=== PATIENT | female | born 1970 | race Caucasian/White ===

== ENCOUNTER → 2017-09-18 20:00 | Outpatient (CLI) | payer MEDICAID, SELFPAY ==
--- NOTE | 2017-09-18 20:00 | DT_ITS ---
This patient was seen during an EMR downtime September 11, 2017 - September 18, 2017. This patient may have a combination of paper and electronic documentation or all paper documentation. All documentation is viewable within the e-chart portion of [facility] for each patient visit.
== END ==
PROVIDERS: Visit Provider Family Medicine
DX: R06.83 Snoring (principal)
CPT/HCPCS: 95810

== ENCOUNTER → 2017-09-27 21:29 | Outpatient (CLI) | payer MEDICAID, SELFPAY | PROVIDERS: Visit Provider Family Medicine | DX: G47.33 Obstructive sleep apnea (adult) (pediatric) (principal) | CPT/HCPCS: 95811 ==

== ENCOUNTER 2019-03-27 02:13 | Emergency (ER) | payer MEDICAID, SELFPAY ==
[2019-03-27 02:13] VITALS: BP 173/89; PULSE 96; RESP 18; TEMP 37; O2SAT 97; BMI 37.4
--- NOTE | 2019-03-27 02:19 | ED.RN ---
CALLED FOR EKG PER RN REQUEST, PULLED OLD EKGS FOR
--- NOTE | 2019-03-27 02:22 | RAD_ITS ---
STUDY: X-RAY CHEST REASON FOR EXAM: Female, 48 years old. Sudden onset of pain in the chest which radiates into the right shoulder TECHNIQUE: 1 view COMPARISON: May 11, 2016 FINDINGS: The lungs are clear and expanded. There is no demonstrated pleural abnormality. Normal size heart. Normal mediastinum and hector. Normal visualized pulmonary arteries. Normal visualized aortic arch and descending thoracic aorta. Normal visualized thoracic spine. Normal visualized ribs, clavicles, and shoulders. There is no demonstrated abnormality of the visualized soft tissue structures of the upper abdomen. RAD/Chest 1 View (Portable) IMPRESSION: Normal x-ray examination of the chest. No acute findings in the lungs Electronically Signed: Abraham Hopson MD at 2:52 EST Tel , Service support ,
--- NOTE | 2019-03-27 02:22 | EKG12_ITS ---
Test Reason : CP Blood Pressure : / mmHG Vent. Rate : 092 BPM Atrial Rate : 092 BPM P-R Int : 142 ms QRS Dur : 080 ms QT Int : 370 ms P-R-T Axes : 049 048 051 degrees QTc Int : 457 ms Normal sinus rhythm Normal ECG Confirmed by AMANDA SHERMAN, BEBETO ([id number]), book editor SERGIO BOND ([id number]) on 04/01/2019 11:48:15 AM Referred By: ESAU Confirmed By:CARLOS PATEL MD
[2019-03-27 02:28] VITALS: BP 173/99; PULSE 94; RESP 23; TEMP 37; O2SAT 93
--- NOTE | 2019-03-27 02:45 | ED.VIS.GEN ---
History of Present Illness Chief Complaint: Chest Pain Informant: Patient Onset: Today Current Severity: - - Resolved Maximum Severity: Moderate Narrative: Patient presents via EMS for chest pain. She reports being diagnosed recently with a viral upper respiratory infection. She was given prednisone and an inhaler. Patient states she was sitting at work tonight when she got sudden pain from the anterior mid chest through to her back. Episode lasted approximately 10 minutes but resolved before EMS arrived. Patient states she continues to have upper respiratory infection symptoms with cough and congestion. She believes her fever has been improving. - Past Medical History (1) Hyperlipidemia Status: Chronic (2) Anxiety Status: Chronic (3) Depression Status: Chronic (4) Hypertension Status: Chronic (5) Myocardial infarction Status: Chronic (6) Asthma Status: Chronic (7) Diabetes Status: Chronic Past Medical History - Allergies and Home Meds Allergies/Adverse Reactions: Allergies gluten Adverse Reaction (Verified 11/02/16 09:59) ABD DISTENTION lactose Adverse Reaction (Verified 11/02/16 09:59) Upset Stomach meperidine [From Demerol] Adverse Reaction (Verified 11/02/16 09:59) Vomiting Primary Care Physician: Fina Sneed DO [Primary Care Provider] - Prior records reviewed: Yes Surgical History: appendectomy, cholecystectomy Smoking Status: Never smoker Review of Systems General: Reports: Fever, Subjective Eyes: Denies: Visual changes - bilaterally ENT: Reports: Sore throat, - - Congestion. Denies: Bilateral ear pain Cardiovascular: Reports: Chest pain Respiratory: Reports: Dyspnea, Cough, Sputum Gastrointestinal: Denies: Vomiting, Diarrhea Genitourinary: Reports: Dysuria Musculoskeletal: Reports: Myalgias Skin: Denies: Rash Neurological: Denies: Headache Hematologic: Denies: Easy bruising, Easy bleeding Allergy: Denies: Uticaria Physical Exam Vital Signs/Narrative: Vital Signs Temp Pulse Resp BP Pulse Ox 03/27/19 02:28 98.6 F 94 23 H 173/99 H 93 03/27/19 02:13 98.6 F 96 18 173/89 H 97 Inital Vital Signs reviewed: Yes General: Well nourished, Well developed Head: Normocephalic ENT: Moist mucous membranes Neck: Supple Cardiovascular: Regular rate, Regular rhythm Respiratory: No distress, CTA bilaterally Abdomen: Soft, Nontender, Nondistended Extremities: Nontender Skin: Normal color, No rash Neurological: Alert, Oriented x3 Psychological: - - Anxious Diagnostic/Tx/Re-eval Impressions Chest X-Ray 03/27/19 02:22 IMPRESSION: Normal x-ray examination of the chest. No acute findings in the lungs Electronically Signed: Abraham Hopson MD at 2:52 EST Tel , Service support , 03/27/19 02:22 Chest 1 View (Portable) [RAD] Stat Laboratory Results 03/27/19 03/27/19 03/27/19 02:40 02:40 03:45 WBC 12.6 H RBC 4.56 Hgb 13.2 Hct 40.3 MCV 88.4 MCH 28.9 MCHC 32.8 RDW Std Deviation 42.9 RDW Coeff of [place] 13.2 Plt Count 357 MPV 9.6 Immature Gran % (Auto) 0.500 Neut % (Auto) 63.4 Lymph % (Auto) 27.8 Roberts % (Auto) 6.6 Eos % (Auto) 1.2 Baso % (Auto) 0.5 Absolute Neuts (auto) 8.0 H Absolute Lymphs (auto) 3.51 Nucleated RBC % 0 Sodium 140 Potassium 3.9 Chloride 110 H Carbon Dioxide 24.0 Anion Gap 6 BUN 14 Creatinine 0.72 Estim Creat Clear Calc 79.90 Est GFR (MDRD) Af Amer 111 Est GFR (MDRD) Non-Af 92 BUN/Creatinine Ratio 19.4 Glucose 132 H Calcium 8.2 L Troponin I < 0.015 Urine Color Yellow Urine Clarity Clear Urine pH 6.5 Ur Specific [place] 1.015 Urine Protein Negative Urine Glucose (UA) Normal Urine Ketones 5 H Urine Occult Blood Negative Urine Nitrite Negative Urine Bilirubin Negative Urine Urobilinogen Normal Ur Leukocyte Esterase Negative Urine RBC 0 SEEN Urine WBC 0 SEEN Ur Squamous Epith Cells 0-5 SEEN Urine Bacteria 0 SEEN Urine Mucus 0 SEEN - EKG Initial EKG Interpretation: Sinus Rhythm - Sinus at 92 with no acute ischemia. - Medical Decision Making Patient has recently been on prednisone but has had some increased reflux symptoms recently. Tonight she had pain in the mid chest. This may have been secondary to esophageal spasm and reflux. At this time her cardiac work-up was unremarkable. She did complain of some dysuria but urinalysis does not show sign of infection. She may have had increased blood sugar levels secondary to her prednisone causing some dysuria. Patient is concerned that her symptoms may be caused by black mold in her home. We will provide her with information for infectious disease for follow-up. I did advise her that social work is available in the emergency room between 10 AM and 10 PM. She can call back and speak with them regarding any assistance that may be available with housing. ED Disposition - Plan for ED Patient: Disposition: Home or Assisted Living Diagnosis: Viral syndrome Instructions: VIRAL SYNDROME (Adult) Referrals: Fina Sneed DO [Primary Care Provider] - Alexis Wright MD [STAFF PHYSICIAN] - As Needed
[2019-03-27] MEDS: 0.9% Normal Saline 1,000 ML 150 ML IV (02:46)
[2019-03-27] MEDS: Ketorolac 30 MG/ML Syringe IV (02:46)
[2019-03-27 02:47] LABS: Absolute Lymphocyte Count 3.51 X10^3/uL (0.83-4.51); Basophil# 0.06 X10^3/uL; Basophil% 0.5 % (0-1); Eosinophil# 0.15 X10^3/uL; Eosinophils% 1.2 % (0-5); Hematocrit 40.3 % (37-47); Hemoglobin 13.2 g/dL (12.0-15.0); Lymphocyte # 3.51 X10^3/ul (4.0); Lymphocyte % 27.8 % (19-41); Mean Corp Hgb Conc 32.8 g/dL (32-36); Mean Corpuscular Hgb 28.9 pg (27.0-32.0); Mean Corpuscular Volume 88.4 fL (81-99); Mean Platelet Vol. 9.6 fl (6.2-12.0); Monocyte# 0.84 X10^3/uL; Monocyte% 6.6 % (0-10); NRBC Flagged by Analyzer 0 % (0-5); Neutrophil # 8.02 X10^3/uL (2.7-7.7); Neutrophil % 63.4 % (47-70); Platelet Count 357 K/mm3 (150-450); RBC Distribution Width CV 13.2 % (11.6-14.6); RBC Distribution Width SD 42.9 fl (35.1-43.9); Red Blood Count 4.56 M/mm3 (4.2-5.4); White Blood Count 12.6 K/mm3 (4.4-11.0)
[2019-03-27 03:06] LABS: Anion Gap 6 (5-15); BUN 14 mg/dL (7-18); BUN/Creat Ratio 19.4 RATIO (10-20); Calcium,Total 8.2 mg/dL (8.5-10.1); Chloride 110 mmol/L (98-107); Creatinine, Serum 0.72 mg/dL (0.55-1.02); EST Glomerular Filtration Rate 92 mL/min (>60); Est Glom Filt Rate - Afr Amer 111 mL/min (>60); Glucose 132 mg/dL (74-106); Potassium 3.9 mmol/L (3.5-5.1); Sodium Level 140 mmol/L (136-145)
[2019-03-27 03:46] VITALS: BP 159/106; PULSE 87; RESP 19; TEMP 37; O2SAT 94
[2019-03-27 03:48] LABS: Bacteria 0 SEEN /hpf (None Seen); Mucous, Urine 0 SEEN /hpf (<or=2+); Red Blood Cells-Urine 0 SEEN /hpf (0-5)
[2019-03-27 03:50] LABS: Color, Urine Yellow (Yellow); Glucose, Dipstick Normal (Normal); Ketone-Dipstick 5 mg/dl (Negative); Leukocyte Esterase-Dipstick Negative /ul (Negative); Nitrite-Dipstick Negative (Negative); Occult Blood-Urine Negative /ul (Negative); Protein-Dipstick Negative (Negative); Specific Gravity, Urine 1.015 (1.002-1.030); Urine Bilirubin Dipstick Negative (Negative); Urine Clarity Clear (Clear); Urine Urobilinogen Normal (Normal); Urine pH 6.5 (5.0 - 8.0)
[2019-03-27 03:59] LABS: Squamous Epithelial Cells - UA 0-5 SEEN /hpf (5-10); White Blood Cells 0 SEEN /hpf (0-5)
[2019-03-27 04:28] VITALS: BP 154/108; PULSE 92; RESP 18; O2SAT 97
== END 2019-03-27 04:29 | disposition home or self-care (01) ==
PROVIDERS: Emergency Provider Emergency Medicine
DX: B34.9 Viral infection, unspecified (principal); J02.9 Acute pharyngitis, unspecified; R09.81 Nasal congestion; R07.89 Other chest pain; R06.00 Dyspnea, unspecified; R05 Cough; R30.0 Dysuria; M79.10 Myalgia, unspecified site; K21.9 Gastro-esophageal reflux disease without esophagitis; I25.2 Old myocardial infarction; J45.909 Unspecified asthma, uncomplicated; E11.9 Type 2 diabetes mellitus without complications
CPT/HCPCS: 36415; 71045; 80048; 81001; 84484; 85025; 93005; 96361; 96374; 99285; J7030

== ENCOUNTER → 2021-03-12 | Outpatient (CLI) | payer MEDICAID, SELFPAY | END | disposition home or self-care (01) | PROVIDERS: Visit Provider Otolaryngology | DX: J02.9 Acute pharyngitis, unspecified (principal) | CPT/HCPCS: 87070 ==